=== PATIENT | female | born 1980 | race Caucasian/White ===

== ENCOUNTER 2021-07-19 16:01 | Emergency (ER) | payer BC ==
[2021-07-19] MEDS ORDERED: Ondansetron 4 MG Tab.DIS PO ONE (16:02)
[2021-07-19 17:23] LABS: CORONAVIRUS COVID-19 NAA NEGATIVE (NEGATIVE)
--- NOTE | 2021-07-19 18:00 | EDM.PDOC ---
<Reza Esposito - Last Filed: 07/19/21 20:00> ED HPI GENERAL MEDICAL PROBLEM - General Chief Complaint: Gastrointestinal Problem Stated Complaint: STOMACH FLU FOR 6 DAYS Time Seen by Provider: 07/19/21 17:59 - Related Data Allergies Allergy/AdvReac Type Severity Reaction Status Date / Time No Known Allergies Allergy Verified 07/19/21 17:10 Home Meds: Home Meds . [No Known Home Meds] 12/20/13 [History] Departure - Departure Time of Disposition: 20:01 Disposition: Home, Self-Care 01 Condition: Fair Clinical Impression: Gastroenteritis - Discharge Information Instructions: Viral Gastroenteritis, Adult, [id number] Forms: ED Department Discharge Care Plan Goals: The patient was advised of the examination and lab results during the visit. The patient was given IV fluids, a GI Cocktail and IV Zofran while in the ED. The patient was discharged with Zofran ODT (4 mg) #2 to take 1 by mouth every 6 hours and a script for Zofran (4 mg) #20 to take 1 by mouth every 6 hours as needed for nausea. The patient was encouraged to stick to a BRAT diet (bananas, rice, applesauce and toast) with small frequent sips of fluid. If the patient has any additional symptoms or concerns, the patient should either return to the emergency department or follow-up with her primary care facility. <AnkitKarolyn Bita - Last Filed: 07/20/21 07:18> ED HPI GENERAL MEDICAL PROBLEM - General Source of Information: Reports: Patient, RN, RN Notes Reviewed History Limitations: Reports: No Limitations - History of Present Illness INITIAL COMMENTS - FREE TEXT/NARRATIVE: Yara is a 40 y/o female who presents to the ED via personal vehicle with complaints of diarrhea, vomiting, and abdominal pain. The patient reports her diarrhea began approximately six days ago with her last bout occurring today at 1500; her vomiting and abdominal pain began three days with her last emesis occurring yesterday. She characterizes the pain in her abdomen as a sharp burning to her bilateral upper abdomen and a cramping to her bilateral lower abdomen. She denies fever, cough, sore throat, chest pain/pressure, palpitations, shortness of breath, hematemesis, dysuria, hematuria, hematochezia, or melena. The patient states her last meal was soup today at 1400. Her LMP was approximately four weeks ago. She denies tobacco, alcohol, or recreational drug use. The patient notes she was on Augmentin four weeks ago for a sinus infection. The patient denies history of COVID infection, but notes her children tested positive in early June; she states she is fully vaccinated and boostered for COVID. Abdomen Pain Score (Numeric/FACES): 5 Past Medical History - Past Surgical History Musculoskeletal Surgical History: Reports: Other (See Below) Other Musculoskeletal Surgeries/Procedures:: Right Knee ACL Repair (04/13/16) Social & Family History - Tobacco Use Tobacco Use Status *Q: Unknown Ever Used Tobacco - Caffeine Use Caffeine Use: Reports: Coffee, Soda - Recreational Drug Use Recreational Drug Use: No ED ROS GENERAL - Review of Systems Review Of Systems: Comprehensive ROS is negative, except as noted in HPI. ED EXAM, GI/ABD - Physical Exam Exam: See Below Exam Limited By: No Limitations General Appearance: Alert, No Apparent Distress, Other (Ill-appearing female) Eyes: Bilateral: Normal Appearance, EOMI Ears: Normal External Exam, Hearing Grossly Normal Nose: Normal Inspection, Normal Mucosa Throat/Mouth: Normal Inspection, Normal Oropharynx, Normal Voice, No Airway Compromise Head: Atraumatic, Normocephalic Neck: Normal Inspection, Supple, Non-Tender, Full Range of Motion. No: Lymphadenopathy (L), Lymphadenopathy (R) Respiratory/Chest: No Respiratory Distress, Lungs Clear, Normal Breath Sounds, No Accessory Muscle Use, Chest Non-Tender Cardiovascular: Regular Rate, Rhythm, No Edema, No Gallop, No JVD, No Murmur, No Rub, Tachycardia GI/Abdominal Exam: Soft, No Distention, No Abnormal Bruit, No Mass, Pelvis Stable, Abnormal Bowel Sounds (hyperactive bowel sounds) (Female) Exam: Deferred Rectal (Female) Exam: Deferred Back Exam: Normal Inspection, Full Range of Motion Extremities: Normal Inspection, Normal Range of Motion, Normal Capillary Refill Neurological: Alert, Oriented, CN II-XII Intact, Normal Cognition, Normal Gait, No Motor/Sensory Deficits Psychiatric: Normal Affect, Normal Mood Skin Exam: Warm, Intact, Normal Color, No Rash, Diaphoretic. No: Cyanosis, Jaundice, Mottled, Pallor Course - Vital Signs Last Recorded V/S: Last Vital Signs Temp 96.7 F L 07/19/21 17:06 Pulse 116 H 07/19/21 17:06 Resp 16 07/19/21 17:06 BP 167/98 H 07/19/21 17:06 Pulse Ox 91 L 07/19/21 17:06 - Orders/Labs/Meds Orders: Active Orders 24 hr Category Date Time Status CULTURE URINE [RM] Stat Lab 07/19/21 18:16 Received Labs: Laboratory Tests 07/19/21 07/19/21 07/19/21 Range/Units 16:30 18:12 18:12 WBC 8.7 (5.0-10.0) 10^3/uL RBC 4.80 (4.2-5.4) 10^6/uL Hgb 13.2 (12.0-16.0) g/dL Hct 39.6 (37.0-47.0) % MCV 82.5 (80-100) fL MCH 27.5 (27.0-34.0) pg MCHC 33.3 (33.0-35.0) g/dL Plt Count 292 (150-450) 10^3/uL Neut % (Auto) 62.6 (42.2-75.2) % Lymph % (Auto) 25.5 (20.5-50.1) % [place] % (Auto) 9.4 H (2-8) % Eos % (Auto) 2.3 (1.0-3.0) % Baso % (Auto) 0.2 (0.0-1.0) % Sodium 142 (136-145) mmol/L Potassium 3.8 (3.5-5.1) mmol/L Chloride 105 (98-107) mmol/L Carbon Dioxide 23 (21-32) mmol/L Anion Gap 17.8 H (7-13) mEq/L BUN 14 (7-18) mg/dL Creatinine 0.78 (0.55-1.02) mg/dL Est Cr Clr Drug Dosing 91.55 mL/min Estimated GFR (MDRD) > 60 BUN/Creatinine Ratio 17.9 (No establ ref range) Glucose 86 (70-99) mg/dL Lactic Acid (0.4-2.0) mmol/L Calcium 8.7 (8.5-10.1) mg/dL Magnesium 2.2 (1.8-2.4) mg/dL Total Bilirubin 0.4 (0.2-1.0) mg/dL AST 31 (15-37) U/L ALT 130 H (14-59) U/L Alkaline Phosphatase 119 H (46-116) U/L C-Reactive Protein 0.5 (0.0-0.9) mg/dL Total Protein 7.1 (6.4-8.2) g/dL Albumin 3.5 (3.4-5.0) g/dL Globulin 3.6 Albumin/Globulin Ratio 1.0 Amylase (25-115) U/L Lipase (73-393) U/L Urine Color (YELLOW) Urine Appearance (CLEAR) Urine pH (5.0-9.0) Ur Specific [place] (1.005-1.030) Urine Protein (NEGATIVE) Urine Glucose (UA) (NEGATIVE) Urine Ketones (NEGATIVE) Urine Occult Blood (NEGATIVE) Urine Nitrite (NEGATIVE) Urine Bilirubin (NEGATIVE) Urine Urobilinogen (0.2-1.0) mg/dL Ur Leukocyte Esterase (NEGATIVE) Urine RBC (0-5) /HPF Urine WBC (0-5/HPF) /HPF Ur Epithelial Cells (NOT SEEN) /HPF Amorphous Sediment (NOT SEEN) /HPF Urine Bacteria (0-FEW/HPF) /HPF Urine Mucus (NOT SEEN) /LPF Urine HCG, Qual Influenza Type A RNA Negative (NEGATIVE) Influenza Type B RNA Negative (NEGATIVE) SARS-CoV-2 RNA (HORACIO) Negative (NEGATIVE) 07/19/21 07/19/21 07/19/21 Range/Units 18:12 18:12 18:16 WBC (5.0-10.0) 10^3/uL RBC (4.2-5.4) 10^6/uL Hgb (12.0-16.0) g/dL Hct (37.0-47.0) % MCV (80-100) fL MCH (27.0-34.0) pg MCHC (33.0-35.0) g/dL Plt Count (150-450) 10^3/uL Neut % (Auto) (42.2-75.2) % Lymph % (Auto) (20.5-50.1) % [place] % (Auto) (2-8) % Eos % (Auto) (1.0-3.0) % Baso % (Auto) (0.0-1.0) % Sodium (136-145) mmol/L Potassium (3.5-5.1) mmol/L Chloride (98-107) mmol/L Carbon Dioxide (21-32) mmol/L Anion Gap (7-13) mEq/L BUN (7-18) mg/dL Creatinine (0.55-1.02) mg/dL Est Cr Clr Drug Dosing mL/min Estimated GFR (MDRD) BUN/Creatinine Ratio (No establ ref range) Glucose (70-99) mg/dL Lactic Acid 0.5 (0.4-2.0) mmol/L Calcium (8.5-10.1) mg/dL Magnesium (1.8-2.4) mg/dL Total Bilirubin (0.2-1.0) mg/dL AST (15-37) U/L ALT (14-59) U/L Alkaline Phosphatase (46-116) U/L C-Reactive Protein (0.0-0.9) mg/dL Total Protein (6.4-8.2) g/dL Albumin (3.4-5.0) g/dL Globulin Albumin/Globulin Ratio Amylase 46 (25-115) U/L Lipase 125 (73-393) U/L Urine Color Dark yellow (YELLOW) Urine Appearance Clear (CLEAR) Urine pH 5.5 (5.0-9.0) Ur Specific [place] >= 1.030 (1.005-1.030) Urine Protein Negative (NEGATIVE) Urine Glucose (UA) Negative (NEGATIVE) Urine Ketones Negative (NEGATIVE) Urine Occult Blood Large H (NEGATIVE) Urine Nitrite Negative (NEGATIVE) Urine Bilirubin Negative (NEGATIVE) Urine Urobilinogen 0.2 (0.2-1.0) mg/dL Ur Leukocyte Esterase Trace H (NEGATIVE) Urine RBC 0-5 (0-5) /HPF Urine WBC 20-30 H (0-5/HPF) /HPF Ur Epithelial Cells Moderate H (NOT SEEN) /HPF Amorphous Sediment Few (NOT SEEN) /HPF Urine Bacteria Moderate H (0-FEW/HPF) /HPF Urine Mucus Moderate H (NOT SEEN) /LPF Urine HCG, Qual Influenza Type A RNA (NEGATIVE) Influenza Type B RNA (NEGATIVE) SARS-CoV-2 RNA (HORACIO) (NEGATIVE) 07/19/21 Range/Units 18:16 WBC (5.0-10.0) 10^3/uL RBC (4.2-5.4) 10^6/uL Hgb (12.0-16.0) g/dL Hct (37.0-47.0) % MCV (80-100) fL MCH (27.0-34.0) pg MCHC (33.0-35.0) g/dL Plt Count (150-450) 10^3/uL Neut % (Auto) (42.2-75.2) % Lymph % (Auto) (20.5-50.1) % [place] % (Auto) (2-8) % Eos % (Auto) (1.0-3.0) % Baso % (Auto) (0.0-1.0) % Sodium (136-145) mmol/L Potassium (3.5-5.1) mmol/L Chloride (98-107) mmol/L Carbon Dioxide (21-32) mmol/L Anion Gap (7-13) mEq/L BUN (7-18) mg/dL Creatinine (0.55-1.02) mg/dL Est Cr Clr Drug Dosing mL/min Estimated GFR (MDRD) BUN/Creatinine Ratio (No establ ref range) Glucose (70-99) mg/dL Lactic Acid (0.4-2.0) mmol/L Calcium (8.5-10.1) mg/dL Magnesium (1.8-2.4) mg/dL Total Bilirubin (0.2-1.0) mg/dL AST (15-37) U/L ALT (14-59) U/L Alkaline Phosphatase (46-116) U/L C-Reactive Protein (0.0-0.9) mg/dL Total Protein (6.4-8.2) g/dL Albumin (3.4-5.0) g/dL Globulin Albumin/Globulin Ratio Amylase (25-115) U/L Lipase (73-393) U/L Urine Color (YELLOW) Urine Appearance (CLEAR) Urine pH (5.0-9.0) Ur Specific [place] (1.005-1.030) Urine Protein (NEGATIVE) Urine Glucose (UA) (NEGATIVE) Urine Ketones (NEGATIVE) Urine Occult Blood (NEGATIVE) Urine Nitrite (NEGATIVE) Urine Bilirubin (NEGATIVE) Urine Urobilinogen (0.2-1.0) mg/dL Ur Leukocyte Esterase (NEGATIVE) Urine RBC (0-5) /HPF Urine WBC (0-5/HPF) /HPF Ur Epithelial Cells (NOT SEEN) /HPF Amorphous Sediment (NOT SEEN) /HPF Urine Bacteria (0-FEW/HPF) /HPF Urine Mucus (NOT SEEN) /LPF Urine HCG, Qual Negative Influenza Type A RNA (NEGATIVE) Influenza Type B RNA (NEGATIVE) SARS-CoV-2 RNA (HORACIO) (NEGATIVE) Meds: Medications Discontinued Medications Generic Name Dose Route Start Last Admin Trade Name Freq PRN Reason Stop Dose Admin Al Hydroxide/Mg Hydroxide 30 ml 07/19/21 18:33 07/19/21 18:44 Gi Cocktail Oral Solution 30 Ml PO 07/19/21 18:34 30 ml ONETIME ONE Administration Sodium Chloride 1,000 mls @ 999 mls/hr 07/19/21 18:33 07/19/21 18:44 Normal Saline IV 07/19/21 19:33 999 mls/hr .BOLUS ONE Administration Ondansetron HCl 4 mg 07/19/21 18:33 07/19/21 18:44 Ondansetron 4 Mg/2 Ml Sdv IVPUSH 07/19/21 18:34 4 mg ONETIME ONE Administration Ondansetron HCl Confirm 07/19/21 20:03 07/19/21 21:24 Ondansetron 4 Mg Tab.Dis Administered 07/19/21 20:04 Not Given Dose 8 mg .ROUTE .STK-MED ONE - Re-Assessments/Exams Free Text/Narrative Re-Assessment/Exam: 07/19/21 Zofran 4mg IVP and NS 1L bolus administered while labs pending. Care of patient transferred to Satya Esposito PA-C at 1900. Sepsis Event Note (ED) - Evaluation Sepsis Screening Result: No Definite Risk - My Orders Last 24 Hours: My Active Orders 07/19/21 18:16 CULTURE URINE [RM] Stat - Assessment/Plan Last 24 Hours: My Active Orders 07/19/21 18:16 CULTURE URINE [RM] Stat
[2021-07-19] MEDS ORDERED: GI Cocktail Oral Solution 30 ML PO ONE (18:33)
[2021-07-19] MEDS ORDERED: Ondansetron 4 MG/2 ML SDV IVPUSH ONE (18:33)
[2021-07-19] MEDS ORDERED: Sodium Chloride 0.9% 1,000 ML IV ONE (18:33)
[2021-07-19 18:42] LABS: ANION GAP 17.8 mEq/L (7-13); CHLORIDE,CL 105 mmol/L (98-107); SODIUM,NA 142 mmol/L (136-145)
[2021-07-19] MEDS ORDERED: Ondansetron 4 MG Tab.DIS ONE (20:03)
== END 2021-07-19 20:11 | disposition home or self-care (01) ==
LOC: DL.ED 16:01
DX: K52.9 Noninfective gastroenteritis and colitis, unspecified (principal); Z20.822 Contact with and (suspected) exposure to COVID-19
CPT/HCPCS: 0240U; 36415; 80053; 81001; 81025; 82150; 83605; 83690; 83735; 85025; 86140; 87086; 96374; 99284; A9270; J2405; J7030

== ENCOUNTER 2021-11-07 05:22 | Day surgery (SDC) | payer BC ==
[2021-11-07] MEDS ORDERED: fentaNYL 100 MCG/2 ML SDV IV ONE ×7 (05:23→07:11)
[2021-11-07] MEDS ORDERED: Midazolam 1 MG/ML 2 ML SDV IV ONE ×7 (05:23→07:03)
[2021-11-07] MEDS ORDERED: fentaNYL 100 MCG/2 ML SDV ONE (05:45)
[2021-11-07] MEDS ORDERED: Midazolam 1 MG/ML 2 ML SDV ONE (05:45)
[2021-11-07] MEDS ORDERED: Dextrose 5%-0.45% NaCl 1,000 ML IV SCH ×2 (05:53→07:30)
[2021-11-07] MEDS ORDERED: Sodium Chloride 0.9% 10 ML Syringe FLUSH PRN (07:28)
[2021-11-07] MEDS ORDERED: Sodium Chloride 0.9% 10 ML Syringe FLUSH SCH (09:00)
== END 2021-11-07 09:30 | disposition home or self-care (01) ==
LOC: DL.ENDO 05:22
PROVIDERS: ATTEND Internal Medicine Gastroenterology
DX: K52.9 Noninfective gastroenteritis and colitis, unspecified (principal); E66.09 Other obesity due to excess calories; Z90.49 Acquired absence of other specified parts of digestive tract; Z68.39 Body mass index [BMI] 39.0-39.9, adult
CPT/HCPCS: 45380; J2250; J3010; J7042